=== PATIENT | male | born 1995 | race African-American/Black ===

== ENCOUNTER 2016-12-26 15:33 | Emergency (ER) | payer BC ==
[~2016-12-26] VITALS: Ht 170.2 cm; Wt 56.9 kg
[2016-12-26 16:31] LABS: HEMATOCRIT 38.6 % (38.0-50.0); MCH 29.6 PG (29.0-34.0); MCHC 33.4 G/DL (30.0-36.0); MCV 88.5 FL (86-99); RBC DIS.WIDTH-CV 10.8 % (11.8-14.6); RBC DIS.WIDTH-SD 35.2 % (39-53); RED BLOOD COUNT 4.36 M/uL (4.00-5.50); WHITE BLOOD COUNT 5.5 K/uL (4.1-10.2)
[2016-12-26 16:43] LABS: CHLORIDE 107 mEq/L (99-109); POTASSIUM 3.8 mEq/L (3.7-5.4); SODIUM 141 mEq/L (136-147)
[2016-12-26 16:45] LABS: GLUCOSE 90 mg/dL (70-99)
[2016-12-26 16:46] LABS: ANION GAP 9 MEQ/L (2-14)
[2016-12-26 16:47] LABS: TOTAL BILIRUBIN 1.5 mg/dL (0.0-1.0)
[2016-12-26 16:49] LABS: ALKALINE PHOSPHATASE 51 IU/L (3-129); GFR ESTIMATE (CALCULATED) > 59 mL/min/
[2016-12-26 16:50] LABS: UREA NITROGEN (BUN) 15 mg/dL (9-23)
[2016-12-26 16:52] LABS: LIPASE 8 U/L (1.0-51.0)
[2016-12-26 17:31] LABS: MEAN PLAT.VOLUME 10.9 uM^3 (9.0-12.4); PLAT.SUFFICIENCY ADEQUATE; PLATELET COUNT 262 K/uL (156-360)
[2016-12-26 17:34] LABS: ADD MIUA? NO; BILIRUBIN NEGATIVE; BLOOD NEGATIVE; COLOR YELLOW ((YELLOW)); GLUCOSE (STRIP) NEGATIVE; KETONES NEGATIVE; LEUKOCYTES NEGATIVE; NITRITE NEGATIVE; PROTEIN (STRIP) 30; SPECIFIC GRAVITY 1.025 (1.000-1.030)
[2016-12-26] MEDS ORDERED: ONDANSETRON ODT4 MG PO (17:39)
[2016-12-26] MEDS ORDERED: REGLAN10 MG PO (17:47)
[2016-12-26] MEDS ORDERED: PRILOSEC20 MG PO (17:47)
[2016-12-26] MEDS ORDERED: BENTYL20 MG PO (17:50)
[2016-12-26 18:07] VITALS: BP 110/65
== END 2016-12-26 18:20 | disposition home or self-care (01) ==
LOC: EME 15:33
PROVIDERS: Nurse Practitioner Family
DX: R10.13 Epigastric pain (principal); R11.2 Nausea with vomiting, unspecified; R79.89 Other specified abnormal findings of blood chemistry
CPT/HCPCS: 74000; 80053; 81003; 83690; 85027; 93005; 99281; 99284